=== PATIENT | female | born 1955 | race Caucasian/White ===

== ENCOUNTER → 2018-04-27 | Outpatient (CLI) | payer OTHER, BC | LOC: M.MRI 11:30 | DX: M17.11 Unilateral primary osteoarthritis, right knee (principal); Z96.651 Presence of right artificial knee joint; S83.511A Sprain of anterior cruciate ligament of right knee, initial encounter; S83.241A Other tear of medial meniscus, current injury, right knee, initial encounter; M25.461 Effusion, right knee; X58.XXXA Exposure to other specified factors, initial encounter; Y93.89 Activity, other specified; Y92.89 Other specified places as the place of occurrence of the external cause; Y99.8 Other external cause status ==

== ENCOUNTER → 2020-07-22 | Outpatient (CLI) | payer OTHER ==
[~2020-07-22] MED LIST: CALCIUM-MAGNES1 EACH PO; CENTRUM SILVER1 EAC4 PO; FERREX 150 PLU1 EAC1 PO; FLURBIPROFEN100 MG PO; HYDROCODON-ACE1 EAC7 PO; MAXZIDE-25 MG1 EACH PO; TRAMADOL 50 MG50 MG PO; VITAMIN B-12500 MCG PO; VITAMIN D5000 UNIT PO; XARELTO10 MG PO
== END ==
LOC: M.MRI 11:38
PROVIDERS: ATTEND Orthopaedic Surgery
DX: S83.242A Other tear of medial meniscus, current injury, left knee, initial encounter (principal); M17.12 Unilateral primary osteoarthritis, left knee; X58.XXXA Exposure to other specified factors, initial encounter; Y93.89 Activity, other specified; Y92.89 Other specified places as the place of occurrence of the external cause; Y99.8 Other external cause status

== ENCOUNTER → 2020-08-05 | Outpatient (CLI) | payer OTHER ==
[~2020-08-05] MED LIST changes: +DICLOFENAC SODI75 MG PO
[2020-08-05 10:47] LABS: ABSOLUTE LYMPHOCYTES 0.9 thou/uL (0.8-5.3); ABSOLUTE MONOCYTES 0.3 thou/uL (0.0-1.2); ABSOLUTE NEUTROPHILS 3.1 thou/uL (1.6-8.1); BASOPHILS 0.7 %; EOSINOPHILS 1.1 %; HEMATOCRIT 39.5 % (37.0-47.0); HEMOGLOBIN 12.7 gm/dL (12.0-15.0); MCH 28.7 pg (26.0-34.0); MCHC 32.2 g/dL (28.0-37.0); MCV 89.2 fL (80.0-100.0); MONOCYTES 6.3 %; MPV 7.2 fl. (7.2-11.1); NUCLEATED RBCS 0 /100WBC; PLATELET COUNT* 253 thou/uL (150-400); POLYS 71.9 %; RBC 4.42 mil/uL (4.20-5.00); RDW-CV 14.2 % (10.5-14.5); WBC 4.3 thou/uL (4.0-11.0)
[2020-08-05 10:57] LABS: APTT 25.4 Seconds (25.0-31.3); PROTIME 10.4 Seconds (9.20-11.50)
[2020-08-05 11:09] LABS: ALBUMIN 3.7 g/dL (3.4-5.0); CALCIUM 8.9 mg/dL (8.5-10.1); CREATININE 0.7 mg/dL (0.6-1.3); POTASSIUM 4.1 mmol/L (3.5-5.1); TOTAL BILIRUBIN 0.6 mg/dL (<0.1-1.0); TOTAL PROTEIN 7.7 g/dL (6.4-8.2)
[2020-08-05 11:51] LABS: ESR (SEDRATE) 20 mm/hr (0-30)
--- NOTE | 2020-08-05 15:48 | EKG ---
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
[2020-08-05 23:23] LABS: GLYCOHEMOGLOBIN (HGB A1C) 5.7 % (4.8-5.6)
== END ==
LOC: M.LAB 08:36
PROVIDERS: ATTEND Orthopaedic Surgery
DX: Z01.812 Encounter for preprocedural laboratory examination (principal); S83.32XA Tear of articular cartilage of left knee, current, initial encounter; Z01.818 Encounter for other preprocedural examination; Z20.822 Contact with and (suspected) exposure to COVID-19; M17.12 Unilateral primary osteoarthritis, left knee; X58.XXXA Exposure to other specified factors, initial encounter; Y92.89 Other specified places as the place of occurrence of the external cause; Y93.89 Activity, other specified; Y99.8 Other external cause status

== ENCOUNTER 2020-08-12 07:30 | Inpatient (IN) | payer OTHER ==
[~2020-08-12] VITALS: Ht 157.5 cm; Wt 90.7 kg
[2020-08-12 14:00] VITALS: BP 109/63
[2020-08-12 16:24] VITALS: BP 137/77
--- NOTE | 2020-08-12 19:24 | NUR ---
Pt arrived to floor around 1330. Pt A&O x4 but sleepy from anesthesia. Pt complained of pain once this evening and was given meds per MAR. Pt put on CPM around 1800 and seemed to be tolerating well. at bedside this afternoon. Bed in low position, bed alarm on, call light within reach.
[2020-08-12 20:20] VITALS: BP 114/67
[2020-08-13 00:14] VITALS: BP 112/53
[2020-08-13 03:49] VITALS: BP 140/68
--- NOTE | 2020-08-13 04:09 | NUR ---
PATIENT ALERT AND ORIENTED X 4 THROUGHOUT THE SHIFT. RESTING QUIETLY ON HOURLY ROUNDS. VITAL SIGNS STABLE WITH O2 ON AT 2L/MIN AND CONTINUOUS CAPNOGRAPHY. DRESSING LEFT KNEE CLEAN AND DRY. POLAR PACK TO LEFT KNEE, RIGHT LISA HOSE AND BILAT FOOT PUMPS IN PLACE AND FUNCTIONING. HEMOVAC DRAIN TO LEFT KNEE WITH MIN/MOD OUTPUT SANGUINEOUS DRAINAGE. UP TO BSC WITH MIN TO CGA, GAIT BELT AND WALKER. DENIES DIZZINESS. MEDICATED FOR PAIN X 2 OF THIS WRITING TO GOOD EFFECT. TOLERATED CPM -1-75 DEGRESS [id number]. FALL PRECAUTIONS IN PLACE. CONTINUE TO MONITOR.
[2020-08-13 05:00] LABS: HEMATOCRIT 31.3 % (37.0-47.0); HEMOGLOBIN 10.3 gm/dL (12.0-15.0)
[2020-08-13 07:30] VITALS: BP 107/57
[2020-08-13 14:03] VITALS: BP 107/57
--- NOTE | 2020-08-13 14:04 | NUR ---
Pt is A&O. Resides at home with her . Independent and active. Pt has a walker and cane at home that she can use. Hx of [facility]. No hx of SNF. Pt wants to use [facility] at dc, with PT only. Therapies to work with Pt today. Anticipate dc either later today or tomorrow.
[2020-08-13 16:43] VITALS: BP 119/50
--- NOTE | 2020-08-13 17:33 | NUR ---
RECIEVED O.T. ORDER. WILL DEFER TO P.T. AT THIS TIME. PLEASE ORDER FURTHER O.T. SERVICES IF NEEDED.
--- NOTE | 2020-08-13 18:31 | NUR ---
PT ALERT AND ORIENTED X 4. PAIN MANAGED WITH IV AND ORAL PAIN MEDS ORDERED. PT STATES SHE IS NOT FEELING WELL. PT HAS POOR PO INTAKE SO FLUIDS REMAIN INFUSING. PT UP TO BEDSIDE COMMODE WITH MAX ASSIST. PT SURGICAL DRESSING REMAINS IN PLACE. C/D/I. HEMAVAC TAKEN OUT THIS SHIFT. WILL CONTINUE TO MONITOR.
[2020-08-13 20:47] VITALS: BP 105/58
[2020-08-14] VITALS: BP 141/63
--- NOTE | 2020-08-14 04:27 | NUR ---
PT A&OX4, VSS ON ROOM AIR, PT UP WITH ASSIST TO BSC. IV FLUIDS INFUSING ORDERED. PRN PAIN MEDICATIONS REQUESTED AND GIVEN ORDERED. DRSG AT DC'D HEMO VAC SITE SATURATED, REINFORCED, THEN REPLACE WITH GAUZE AND FOAM TAPE. ASSESSMENTS AND HOURLY ROUNDINGS COMPLETE. WILL CONTINUE TO MONITOR.
[2020-08-14 04:55] LABS: HEMATOCRIT 28.2 % (37.0-47.0); HEMOGLOBIN 9.3 gm/dL (12.0-15.0)
[2020-08-14 08:08] VITALS: BP 115/59
[2020-08-14] MEDS ORDERED: HYDROCODON-ACE1 EAC7 PO (08:39)
[2020-08-14 09:00] VITALS: BP 107/57
--- NOTE | 2020-08-14 09:02 | NUR ---
Pt discharging to home today, faxed HH orders to [facility].
[2020-08-14 16:00] VITALS: BP 122/74
--- NOTE | 2020-08-14 17:45 | NUR ---
PATIENT HAS REMAINED A&OX4, PLEASANT AND COOPERATIVE WITH CARES THIS SHIFT. PATIENT DENIED ANY PAIN UNTIL THIS EVENING WHICH WAS RESOLVED WITH ADMINISTRATION OF PRN PAIN MEDICATION. PATIENT HAD DISCHARGE ORDERS TODAY HOWEVER STATED TO DR. BAEZ THAT SHE "WANTED TO STAY ONE MORE NIGHT". DR. RODGERS NOTIFIED [facility]. PATIENT HAS BEEN UP IN RECLINER ALL SHIFT. CURRENTLY AT BEDSIDE, CALL LIGHT AND FREQUENTLY USED ITEMS WITHIN REACH.
[2020-08-14 20:15] VITALS: BP 113/62
[2020-08-15 03:46] VITALS: BP 105/60
--- NOTE | 2020-08-15 05:46 | NUR ---
PT UP IN CHAIR AT START OF SHIFT. UP WITH ONE ASSIST, GB, WALKER. USING CPM AT HS. L KNEE DRSG CDI, HEMOVAC DRSG CDI. LFA SL IV, TAKING FLUIDS PO WITHOUT DIFFICULTY. UP WITH ASSIST TO BSC TO VOID. FOOT PUMPS ON.PASSING GAS, DENIES BM BUT STATES SHE HASNT EATEN MUCH. ABLE TO USE CALL LITE AND MAKE NEEDS KNOWN. ANTICIPATING DC HOME TODAY WITH HOME HEALTH.
[2020-08-15 08:30] VITALS: BP 137/84
--- NOTE | 2020-08-15 08:48 | NUR ---
Pt should be medically stable to dc to home today with [facility], CM to updated HH of dc. KAILA called [facility] to check the cost of her Xarelto rx, cost is $49.25
--- NOTE | 2020-08-15 08:49 | OP ---
[facility] [address] [place] [address] OPERATIVE REPORT Name: HANNY OLMOSJIM S Room: [address] M.R.#: [id number] Admission: 08/12/20 Attend Phys: Tiffani Hermosillo Discharge: Date of : 59 Report #: [id number] THIS REPORT FOR: cc: Derick Hopson Russell J. DO Greiner, Robert F. II DO ~ PREOPERATIVE DIAGNOSIS: Left knee osteoarthritis. POSTOPERATIVE DIAGNOSIS: Left knee osteoarthritis. PROCEDURE: Left total knee arthroplasty. SURGEON: Antonio Brown II, DO. IMPREGNATOR OPERATOR: None. ANESTHESIA: General endotracheal. ESTIMATED BLOOD LOSS: 50 mL. ANTIBIOTICS: Ancef preoperatively. DRAINS: Medium Hemovac. COMPLICATIONS: None. CONDITION: The patient is stable to recovery room. IMPLANTS: Listed in operative record and progress note. BRIEF HISTORY: The patient was seen in the preoperative area. Preoperative H and P was performed. Site was marked, questions were answered. Risks and benefits were discussed with the patient in detail about surgery. The patient wished to proceed, assuming all risks. This patient did have from 12 degrees to 75 degrees of range of motion of this knee preoperatively. The patient was discussed extensive scarring and tightness of the quadriceps muscle and possible failure to obtain full range of motion, past 110 degrees. The patient has understanding of this. OPERATIVE PROCEDURE: The patient was taken to the operative suite, placed supine on the operating table, given appropriate anesthesia. The patient was general anesthesia and an adductor canal block. A well-padded tourniquet was then applied to the upper thigh, which was inflated to 300 mmHg after gravity exsanguination. The operative knee was sterilely prepped and draped. Surgery began by midline incision. This was carried down to the subcutaneous tissues. A medial parapatellar arthrotomy was performed and [place] [address] OPERATIVE REPORT Name: JIM ISIDRO Room: [address]#: [id number] Admission: 08/12/20 Attend Phys: Tiffani Hermosillo Discharge: Date of : 59 Report #: [id number] Patella was then everted and excess soft tissues were removed from around the femur. Femoral cutting block was then applied, checked with drop yovani for rotational alignment, pinned in appropriate position and appropriate cuts were made. A 4-in-1 cutting block was then applied, checked for rotational alignment, pinned in appropriate position and appropriate cuts were made. Tibia was then exposed. Excess meniscus was removed. Retractor was placed on collateral ligaments. Tibial cutting block was then applied, pinned in appropriate position, checked with drop yovani for rotational alignment and slope and appropriate cut was made. Two extra millimeters of bone was taken off the tibia to allow for further extension and flexion. Tibial baseplate was then applied, checked for rotational alignment with the drop yovani and pinned in appropriate position. Femur was then applied and box cut was reamed. This was then trialed with appropriate spacer, which showed excellent fit and fill and excellent stability of knee through all range of motion. Range of motion was from 0-120 degrees. The patella was then reamed in appropriate fashion and sized to appropriate size. Three peg holes were drilled and it was then trialled and shown to have excellent flexion and extension, excellent tracking of the patella within the groove. These trials were then removed. Tibia was punched in appropriate fashion. Bone ends were cleansed with Pulsavac irrigation and cement was mixed and applied to final implants. These were then malleted into position and held the knee in extension and compressed to allow cement to cure. After it cured, excess was removed utilizing Ozan and osteotome. Wound was then copiously irrigated and the final spacer was malleted into position. Tourniquet was deflated. Hemostasis was maintained with electrocautery. Pain cocktail was injected. Medium Hemovac drain was applied. Capsule was closed with #2 FiberWire and #1 Vicryl in [id number] fashion. Skin was closed with 2-0 Vicryl and running 3-0 Monocryl. Dermabond and sterile dressing applied. Abbe wrap and PolarCare applied. The patient transported to recovery room in stable condition. Counts were correct throughout the procedure. <ELECTRONICALLY SIGNED> By: Antonio Brown II, DO 08/15/20 0849 [id number] Brown II, DO /nt
[2020-08-15 11:36] VITALS: BP 107/57
[2020-08-15 13:49] VITALS: BP 107/57
--- NOTE | 2020-08-15 13:50 | NUR ---
PATIENT GIVEN DISCHARGE INSTRUCTIONS AND INFORMATION SHEETS ON [facility]. PRN PAIN MEDICATION ADMINISTERED PRIOR TO DISCHARGE. PATIENT DENIES PAIN/QUESTIONS/CONCERNS PRIOR TO DISCHARGE. PATIENT TOOK ALL PERSONAL BELONGINGS WELL CPM, POLAR RIGO, ETC. PATIENT LEFT UNIT VIA W/C ACCOMPANIED BY AND NURSING STAFF AT APPROX. 1320.
== END 2020-08-15 13:20 | disposition home health service (06) | DRG 470 ==
LOC: M.ORTHSURG → M.TBA 08:35 → M.ORTHSURG 08:35
PROVIDERS: Orthopaedic Surgery; ADMIT Internal Medicine; ATTEND Internal Medicine
PROC: 0SRD0J9 Replacement of Left Knee Joint with Synthetic Substitute, Cemented, Open Approach (ICD-10-PCS; principal; 2020-08-12)
PROC: 3E0T3BZ Introduction of Anesthetic Agent into Peripheral Nerves and Plexi, Percutaneous Approach (ICD-10-PCS; principal; 2020-08-12)
DX: M17.12 Unilateral primary osteoarthritis, left knee (principal); G62.9 Polyneuropathy, unspecified; Z96.651 Presence of right artificial knee joint; Z79.899 Other long term (current) drug therapy

== ENCOUNTER → 2020-12-09 | Outpatient (CLI) | payer OTHER | LOC: M.LAB 14:27 | PROVIDERS: ATTEND Anesthesiology | DX: Z01.812 Encounter for preprocedural laboratory examination (principal); Z20.822 Contact with and (suspected) exposure to COVID-19; E87.4 Mixed disorder of acid-base balance ==